=== PATIENT | female | born 1965 | race African-American/Black ===

== ENCOUNTER 2016-12-14 18:17 | Emergency (ER) | payer OTHER ==
[~2016-12-14] VITALS: Ht 170.2 cm; Wt 86.2 kg
[~2016-12-14 18:17] MED LIST: LEVO88TA2 PO
[2016-12-14 18:21] VITALS: BP 165/92
--- NOTE | 2016-12-14 21:08 | PHYS DOC ---
Past Medical History Past Medical History: Hypothyroid, Other Additional Past Medical Histor: LOW VITAMIN D, L VOCAL CORD PARALYZED Past Surgical History: Hysterectomy, Other Additional Past Surgical Histo: thyroid removed, UTERINE FIBROIDS Alcohol Use: None Drug Use: None Adult General Chief Complaint Chief Complaint: OTHER COMPLAINTS [facility] HPI Patient is a 51 year old female who presents with shortness of breath starting today. She reports dry mouth throat with hoarse voice and nasal drainage. She denies fever, cough, chest pain, pleuritic pain, or sore throat. Patient has a history of left vocal cord paralysis after thyroidectomy. She commonly has problems with shortness of breath when she does a lot of talking or with weather changes. She is usually able to improve her symptoms with use of her Flonase, Zyrtec, and drinking a lot of water. She states that today symptoms have persisted. Her PCP is Dr. Hood Richey. Review of Systems Review of Systems Constitutional: Denies fever or chills. [] Eyes: Denies change in visual acuity, redness, or eye pain. [] HENT: Denies ear pain or sore throat. Reports nasal drainage, dry mouth and throat, and hoarse voice. Respiratory: Denies cough. Reports shortness of breath. Cardiovascular: Denies chest pain, palpitations or edema. [] Integument: Denies rash or skin lesions. [] Neurologic: Denies headache, focal weakness or sensory changes. [] All systems reviewed and negative unless otherwise stated in the HPI. Allergies Allergies Allergies Coded Allergies Type Severity Reaction Last Updated Verified Penicillins Allergy Severe Shortness of Air, "swell up and cant breathe" No oxycodone Allergy Intermediate Unknown 09/06/14 No doxycycline Adverse Reaction Intermediate Anxiety 09/06/14 No prednisone Adverse Reaction Intermediate "sweating" 09/06/14 No Physical Exam Physical Exam Constitutional: Well developed, well nourished, no acute distress, non-toxic appearance. [] HENT: Normocephalic, atraumatic, bilateral external ears normal, oropharynx moist, no oral exudates, nose normal. Bilateral TMs without erythema or bulging. There is no posterior pharyngeal erythema or tonsillar edema. Bilateral nasal turbinates are swollen and erythematous with purulent drainage. Eyes: PERRLA, EOMI, conjunctiva normal, no discharge. [] Neck: Normal range of motion, no tenderness, supple, no stridor. [] Cardiovascular: Heart rate regular rhythm, no murmur [] Lungs & Thorax: Bilateral breath sounds clear to auscultation without wheezes, rales, or rhonchi. No respiratory distress. No increased effort with breathing. Skin: Warm, dry, no erythema, no rash. [] Neurologic: Alert and oriented X 3, normal motor function, normal sensory function, no focal deficits noted. [] Psychologic: Affect normal, judgement normal, mood normal. [] Current Patient Data Vital Signs Vital Signs Date Time Temp Pulse Resp B/P Pulse Ox O2 Delivery O2 Flow Rate FiO2 12/14/16 18:21 97.9 97 18 99 Room Air 97.9 EKG EKG [] Radiology/Procedures Radiology/Procedures PA and lateral chest x-ray reviewed and interpreted by myself with Dr. Diaz. There are no focal infiltrates or other cardiopulmonary process. Course & Med Decision Making Course & Med Decision Making Pertinent Labs and Imaging studies reviewed. (See chart for details) [] Dragon Disclaimer Dragon Disclaimer This electronic medical record was generated, in whole or in part, using a voice recognition dictation system. Departure Departure Impression: Primary Impression: URI (upper respiratory infection) Disposition: 01 HOME, SELF-CARE Condition: STABLE Referrals: NON,STAFF (PCP) Patient Instructions: Upper Respiratory Infection, Adult, [id number] Additional Instructions: Your chest x-ray does not show any abnormalities. Your oxygen level was normal. You may put a humidifier in your bedroom while sleeping to help decrease the dryness in the air. Please continue your home medications as directed. Return to the emergency department if you have any new or concerning symptoms. Problem Qualifiers Primary Impression: URI (upper respiratory infection) URI type: unspecified viral URI Qualified Code: J06.9 - Acute upper respiratory infection, unspecified [facility] [facility] Dec 14, 2016 21:08
--- NOTE | 2016-12-15 08:53 | RAD ---
Chest, 2 views, 12/14/2016: History: Shortness of breath Comparison is made to a study from 07/09/2011. The heart size and pulmonary vascularity are normal. There is minimal linear atelectasis or scarring in the left base. No pulmonary consolidation is seen. There is no evidence of pleural fluid. IMPRESSION: Minimal left basilar linear atelectasis or scarring.
== END 2016-12-14 21:12 | disposition home or self-care (01) ==
LOC: ER 18:17
DX: J06.9 Acute upper respiratory infection, unspecified (principal); E03.9 Hypothyroidism, unspecified; Z88.0 Allergy status to penicillin; Z88.1 Allergy status to other antibiotic agents; Z88.5 Allergy status to narcotic agent; Z88.8 Allergy status to other drugs, medicaments and biological substances
CPT/HCPCS: 71020; 99284